=== PATIENT | male | born 1995 | race Two or more races ===

== ENCOUNTER 2017-05-02 17:17 | Emergency (ER) | payer OTHER ==
[~2017-05-02] VITALS: Ht 170.2 cm; Wt 113.4 kg
[2017-05-02 18:53] VITALS: BP 135/74
[2017-05-02] MEDS ORDERED: BACITRACIN TOP OINT 1 UD PKG TOP ONE (19:29)
[2017-05-02] MEDS ORDERED: HYDROcodone-ACET 10/325MG TAB PO ONE (19:30)
[2017-05-02] MEDS ORDERED: KETOROLAC TROMETH 60MG/2ML VIAL IM ONE (19:30)
== END 2017-05-02 19:51 | disposition home or self-care (01) ==
LOC: ER 17:26
DX: S67.192A Crushing injury of right middle finger, initial encounter (principal); S67.21XA Crushing injury of right hand, initial encounter; J45.909 Unspecified asthma, uncomplicated; I10 Essential (primary) hypertension; W23.0XXA Caught, crushed, jammed, or pinched between moving objects, initial encounter; Y93.89 Activity, other specified; Y99.8 Other external cause status; Y92.89 Other specified places as the place of occurrence of the external cause
CPT/HCPCS: 29130; 73140; 96372; 99284; J1885

== ENCOUNTER 2021-01-20 14:55 | Inpatient (IN) | payer MEDICAID, OTHER ==
[~2021-01-20] VITALS: Ht 170.2 cm; Wt 124.8 kg
[2021-01-20] MEDS ORDERED: ACETAMINOPHEN 325 MG TAB PO ONE (15:15)
[2021-01-20 16:10] LABS: Basophils # (auto) 0 10 ^3/uL (0-0.2); Basophils % (auto) 0.1 % (0.0-2.0); Eosinophils # (auto) 0 10 ^3/uL (0-0.8); Eosinophils % (auto) 0.1 % (0.0-7.0); Hematocrit 43.8 % (41.0-53.0); Hemoglobin 15.5 g/dL (13.5-17.5); Lymphocytes # (auto) 1.1 10 ^3/uL (0.4-5.4); Lymphocytes % (auto) 11.4 % (10.0-50.0); Mean Corpuscular Hgb Conc. 35.5 g/dL (32.0-36.0); Mean Corpuscular Volume 84.6 fL (80.0-100.0); Monocytes # (auto) 0.7 10 ^3/uL (0-1.3); Monocytes % (auto) 6.5 % (0.0-12.0); Neutrophils # (auto) 8.2 10 ^3/uL (1.6-8.6); Neutrophils % (auto) 81.9 % (37.0-80.0); Nucleated Red Blood Cells % 0.1 %; Red Blood Cells 5.18 10^6/uL (4.5-5.90); Red Cell Distribution Width 12.9 % (11.8-14.3)
[2021-01-20] MEDS ORDERED: DexAMETHasone SOD PHOS 10MG/1ML VIAL INJ IV ONE (16:15)
[2021-01-20] MEDS ORDERED: AZITHROMYCIN 500MG/ 250ML 250 ML IV ONE (16:15)
[2021-01-20] MEDS ORDERED: cefTRIAXone 1GM/50ML D5W 50 ML IV ONE (16:15)
[2021-01-20 16:29] LABS: Albumin 3.5 g/dL (3.4-5.0); BUN/Creatinine Ratio 9.9; Potassium 3.7 mmol/L (3.5-5.1)
[2021-01-20 16:31] LABS: Bilirubin, Total 0.7 mg/dL (0.2-1.0); Total Protein 8.5 g/dL (6.4-8.2)
[2021-01-20 16:32] LABS: INR 1.06 (0.9-1.15); Partial Thromboplastin Time 29.1 sec (23.0-31.2)
[2021-01-20] MEDS ORDERED: MORPHINE SULF INJ 2 MG/ML SYRINGE 1ML IV ONE (16:45)
[2021-01-20] MEDS ORDERED: NITROGLYCERIN 0.4 MG SL TAB SL PRN (16:45)
[2021-01-20] MEDS ORDERED: MORPHINE SULF INJ 2 MG/ML SYRINGE 1ML IV PRN (16:45)
[2021-01-20] MEDS ORDERED: ONDANSETRON HCL 4 MG/2 ML VIAL IV ONE (16:45)
[2021-01-20 17:58] VITALS: BP 125/76
[2021-01-20] MEDS ORDERED: REMDESIVIR PER PHARMACY 0 ML IV SCH (18:00)
[2021-01-20] MEDS ORDERED: REMDESIVIR 200 MG in NS 210ml LOADING DOSE ADULT IV ONE (21:00)
[2021-01-20 22:00] VITALS: BP 121/73
[2021-01-21] VITALS (8 sets, daily range): BP systolic 100–132; BP diastolic 55–73
[2021-01-21] MEDS ORDERED: LORazepam 0.5 MG TAB PO PRN (02:00)
[2021-01-21] MEDS ORDERED: MORPHINE SULF INJ 2 MG/ML SYRINGE 1ML IV PRN ×2 (02:00)
[2021-01-21] MEDS ORDERED: ALUM & MAG HYDROX-SIMETH LIQ(MAALOX) 30 ML PO PRN (02:00)
[2021-01-21] MEDS ORDERED: ONDANSETRON HCL 4 MG/2 ML VIAL IV PRN (02:00)
[2021-01-21] MEDS ORDERED: DOCUSATE SOD 100 MG CAP PO PRN (02:00)
[2021-01-21] MEDS ORDERED: ALBUTEROL SULF HFA 90MCG INH 200DOSE IN PRN (02:00)
[2021-01-21] MEDS ORDERED: NITROGLYCERIN 0.4 MG SL TAB SL PRN (02:00)
[2021-01-21] MEDS ORDERED: ACETAMINOPHEN 325 MG TAB PO PRN (02:00)
[2021-01-21] MEDS ORDERED: ACETAMINOPHEN 500 MG TAB PO PRN (02:00)
[2021-01-21] MEDS ORDERED: HYDROcodone-ACET 5/325MG TAB PO PRN (02:00)
[2021-01-21] MEDS ORDERED: DOXYCYCLINE 100MG/250ML 250 ML IV SCH (03:00)
[2021-01-21] MEDS ORDERED: IPRATROPIUM BROMIDE HFA AER IN SCH (06:00)
[2021-01-21] MEDS ORDERED: IPRATROPIUM BROMIDE HFA AER IN PRN (06:00)
[2021-01-21 06:06] LABS: Basophils # (auto) 0 10 ^3/uL (0-0.2); Basophils % (auto) 0.2 % (0.0-2.0); Eosinophils # (auto) 0 10 ^3/uL (0-0.8); Hematocrit 43.1 % (41.0-53.0); Hemoglobin 15.5 g/dL (13.5-17.5); Lymphocytes # (auto) 0.9 10 ^3/uL (0.4-5.4); Lymphocytes % (auto) 14.6 % (10.0-50.0); Mean Corpuscular Hemoglobin 30.7 pg (28.0-32.0); Mean Corpuscular Volume 85.3 fL (80.0-100.0); Monocytes # (auto) 0.5 10 ^3/uL (0-1.3); Monocytes % (auto) 8.2 % (0.0-12.0); Neutrophils # (auto) 4.5 10 ^3/uL (1.6-8.6); Nucleated Red Blood Cells % 0.1 %; Red Blood Cells 5.06 10^6/uL (4.5-5.90); Red Cell Distribution Width 12.8 % (11.8-14.3); White Blood Cell 5.8 10^3/uL (4.4-10.8)
[2021-01-21 06:23] LABS: Albumin 3.1 g/dL (3.4-5.0); Anion Gap 4 (5-15); Blood Urea Nitrogen 13 mg/dL (7-18); Calcium 8.6 mg/dL (8.5-10.1); Carbon Dioxide 29 mmol/L (21-32); Chloride 105 mmol/L (98-107); Glucose 126 mg/dL (74-106); Magnesium 2.6 mg/dL (1.6-2.6); Sodium 138 mmol/L (136-145)
[2021-01-21 06:29] LABS: Alanine Aminotransferase 32 U/L (16-61); Alkaline Phosphatase 60 U/L (45-117); Aspartate Aminotransferase 15 U/L (15-37); Bilirubin, Total 0.6 mg/dL (0.2-1.0); GFR African American 148 mL/min; GFR Non-African American 122 mL/min; Total Protein 8.1 g/dL (6.4-8.2)
[2021-01-21 06:31] LABS: INR 1.06 (0.9-1.15); Partial Thromboplastin Time 27.9 sec (23.0-31.2)
[2021-01-21 06:32] LABS: CRP High Sensitivity 11.6 mg/dL (< 0.3); Cholesterol 162 mg/dL (< 200); HDL Cholesterol 23 mg/dL (40-59); LDL Cholesterol 118 mg/dL (< 100); Triglycerides 141 mg/dL (< 150)
[2021-01-21 06:37] LABS: Thyroid Stimulating Hormone 0.37 uIU/mL (0.358-3.74)
[2021-01-21] MEDS ORDERED: IVERMECTIN 3 MG TAB PO ONE (07:00)
[2021-01-21] MEDS: CHOLECALCIFEROL (VITD3) 2,000 UNIT CAP/TAB PO SCH (09:48)
[2021-01-21] MEDS: DexAMETHasone SOD PHOS 10MG/1ML VIAL INJ IV SCH (09:48)
[2021-01-21] MEDS: FLORASTOR (S. BOULARDII) 250 MG CAP PO SCH ×2 (09:48→21:36)
[2021-01-21] MEDS: ZINC SULFATE 220mg CAP or TAB PO SCH (09:48)
[2021-01-21] MEDS: ASCORBIC ACID 1,000 MG TAB PO SCH (09:48)
[2021-01-21] MEDS: ENOXAPARIN SOD 40 MG/0.4 ML SYRINGE SC SCH ×2 (09:49→21:36)
[2021-01-21] MEDS: BUDESONIDE (INHALATION) 180 MCG IH IN SCH ×2 (10:32→21:36)
[2021-01-21] MEDS ORDERED: PROMETHAZINE W/CODEINE 5 ML ORAL SYRUP PO PRN (10:45)
[2021-01-21] MEDS: ALBUTEROL SULF HFA 90MCG INH 200DOSE IN SCH ×2 (14:00→21:37)
[2021-01-21] MEDS: REMDESIVIR 100mg 100 MG in SODIUM CHL 0.9% 230 ML IV SCH (16:10)
[2021-01-21] MEDS: DOXYCYCLINE 100MG/250ML 250 ML IV SCH (17:30)
[2021-01-22] MEDS: DOXYCYCLINE 100MG/250ML 250 ML IV SCH ×2 (04:31→18:02)
[2021-01-22 05:00] VITALS: BP 111/61
[2021-01-22 06:25] LABS: Potassium 3.7 mmol/L (3.5-5.1)
[2021-01-22 06:33] LABS: BUN/Creatinine Ratio 20.5; Bilirubin, Total 0.4 mg/dL (0.2-1.0); Calcium 8.8 mg/dL (8.5-10.1); Total Protein 7.3 g/dL (6.4-8.2)
[2021-01-22 08:30] VITALS: BP 99/56
[2021-01-22] MEDS: ASCORBIC ACID 1,000 MG TAB PO SCH (09:54)
[2021-01-22] MEDS: ZINC SULFATE 220mg CAP or TAB PO SCH (09:54)
[2021-01-22] MEDS: ENOXAPARIN SOD 40 MG/0.4 ML SYRINGE SC SCH ×2 (09:54→22:08)
[2021-01-22] MEDS: CHOLECALCIFEROL (VITD3) 2,000 UNIT CAP/TAB PO SCH (09:54)
[2021-01-22] MEDS: FLORASTOR (S. BOULARDII) 250 MG CAP PO SCH ×2 (09:54→22:08)
[2021-01-22] MEDS: DexAMETHasone SOD PHOS 10MG/1ML VIAL INJ IV SCH (09:56)
[2021-01-22 12:33] VITALS: BP 112/60
[2021-01-22] MEDS: REMDESIVIR 100mg 100 MG in SODIUM CHL 0.9% 230 ML IV SCH (14:56)
[2021-01-22 17:00] VITALS: BP 119/60
[2021-01-22 22:00] VITALS: BP 123/80
[2021-01-23 05:00] VITALS: BP 119/61
[2021-01-23 05:52] LABS: Albumin 2.8 g/dL (3.4-5.0); Calcium 8.1 mg/dL (8.5-10.1); Potassium 3.8 mmol/L (3.5-5.1)
[2021-01-23 05:57] LABS: BUN/Creatinine Ratio 20.5; Bilirubin, Total 0.4 mg/dL (0.2-1.0); Total Protein 7.1 g/dL (6.4-8.2)
[2021-01-23] MEDS: DOXYCYCLINE 100MG/250ML 250 ML IV SCH ×2 (05:57→17:32)
[2021-01-23] MEDS: BUDESONIDE (INHALATION) 180 MCG IH IN SCH ×3 (07:05→19:06)
[2021-01-23 08:51] VITALS: BP 125/68
[2021-01-23] MEDS: CHOLECALCIFEROL (VITD3) 2,000 UNIT CAP/TAB PO SCH (10:00)
[2021-01-23] MEDS: ASCORBIC ACID 1,000 MG TAB PO SCH (11:00)
[2021-01-23] MEDS: ZINC SULFATE 220mg CAP or TAB PO SCH (11:00)
[2021-01-23] MEDS: FLORASTOR (S. BOULARDII) 250 MG CAP PO SCH ×2 (11:00→22:22)
[2021-01-23] MEDS: ENOXAPARIN SOD 40 MG/0.4 ML SYRINGE SC SCH ×2 (11:00→22:22)
[2021-01-23] MEDS: DexAMETHasone SOD PHOS 10MG/1ML VIAL INJ IV SCH (11:00)
[2021-01-23 13:17] VITALS: BP 140/65
[2021-01-23] MEDS: REMDESIVIR 100mg 100 MG in SODIUM CHL 0.9% 230 ML IV SCH (15:00)
[2021-01-23 17:00] VITALS: BP 126/71
[2021-01-23] MEDS: ALBUTEROL SULF HFA 90MCG INH 200DOSE IN SCH ×2 (19:05→19:06)
[2021-01-23 19:24] VITALS: BP 126/71
[2021-01-23 22:00] VITALS: BP 120/54
[2021-01-24 05:00] VITALS: BP 128/59
[2021-01-24] MEDS: DOXYCYCLINE 100MG/250ML 250 ML IV SCH ×2 (05:12→17:30)
[2021-01-24] MEDS: BUDESONIDE (INHALATION) 180 MCG IH IN SCH (06:21)
[2021-01-24 06:22] LABS: Basophils # (auto) 0 10 ^3/uL (0-0.2); Basophils % (auto) 0.2 % (0.0-2.0); Eosinophils # (auto) 0.1 10 ^3/uL (0-0.8); Eosinophils % (auto) 0.7 % (0.0-7.0); Hematocrit 45.5 % (41.0-53.0); Hemoglobin 15.5 g/dL (13.5-17.5); Lymphocytes # (auto) 2.1 10 ^3/uL (0.4-5.4); Lymphocytes % (auto) 15.7 % (10.0-50.0); Mean Corpuscular Hemoglobin 29.2 pg (28.0-32.0); Mean Corpuscular Volume 85.8 fL (80.0-100.0); Monocytes % (auto) 7.4 % (0.0-12.0); Nucleated Red Blood Cells % 0.1 %; Red Cell Distribution Width 13.3 % (11.8-14.3); White Blood Cell 13.2 10^3/uL (4.4-10.8)
[2021-01-24] MEDS: ALBUTEROL SULF HFA 90MCG INH 200DOSE IN SCH ×2 (06:22→11:47)
[2021-01-24 06:32] LABS: Potassium 3.9 mmol/L (3.5-5.1)
[2021-01-24 06:38] LABS: Bilirubin, Total 0.5 mg/dL (0.2-1.0); CRP High Sensitivity 0.78 mg/dL (< 0.3); Calcium 8.3 mg/dL (8.5-10.1); Total Protein 6.9 g/dL (6.4-8.2)
[2021-01-24 08:39] VITALS: BP 113/49
[2021-01-24] MEDS: CHOLECALCIFEROL (VITD3) 2,000 UNIT CAP/TAB PO SCH (09:45)
[2021-01-24] MEDS: ASCORBIC ACID 1,000 MG TAB PO SCH (09:45)
[2021-01-24] MEDS: DexAMETHasone SOD PHOS 10MG/1ML VIAL INJ IV SCH (09:45)
[2021-01-24] MEDS: ENOXAPARIN SOD 40 MG/0.4 ML SYRINGE SC SCH (09:45)
[2021-01-24] MEDS: FLORASTOR (S. BOULARDII) 250 MG CAP PO SCH (09:45)
[2021-01-24] MEDS: ZINC SULFATE 220mg CAP or TAB PO SCH (09:45)
[2021-01-24] MEDS ORDERED: ZINC220C8 PO (10:46)
[2021-01-24] MEDS ORDERED: ASCO10003 PO (10:46)
[2021-01-24] MEDS ORDERED: CHOL1CAP47 PO (10:46)
[2021-01-24] MEDS ORDERED: DOXY-332 PO (10:46)
[2021-01-24] MEDS ORDERED: DEXA6TAB6 PO (10:46)
[2021-01-24] MEDS ORDERED: ALBUAER3 IN (10:46)
[2021-01-24 11:11] VITALS: BP 113/49
[2021-01-24 13:00] VITALS: BP 115/70
[2021-01-24] MEDS: REMDESIVIR 100mg 100 MG in SODIUM CHL 0.9% 230 ML IV SCH (15:30)
== END 2021-01-24 18:10 | disposition home or self-care (01) | DRG 137 ==
LOC: ER 14:55 → TELE-EAST 16:40
PROVIDERS: ADMIT Hospitalist; ATTEND Hospitalist
PROC: XW033E5 Introduction of Remdesivir Anti-infective into Peripheral Vein, Percutaneous Approach, New Technology Group 5 (ICD-10-PCS; principal; 2021-01-20)
DX: U07.1 COVID-19 (principal); J96.01 Acute respiratory failure with hypoxia; J12.82 Pneumonia due to coronavirus disease 2019; J06.9 Acute upper respiratory infection, unspecified; E66.01 Morbid (severe) obesity due to excess calories; J98.11 Atelectasis; T38.0X5A Adverse effect of glucocorticoids and synthetic analogues, initial encounter; I49.8 Other specified cardiac arrhythmias; Z68.41 Body mass index [BMI] 40.0-44.9, adult; Y92.89 Other specified places as the place of occurrence of the external cause; Z90.49 Acquired absence of other specified parts of digestive tract; Z79.899 Other long term (current) drug therapy; D72.829 Elevated white blood cell count, unspecified
CPT/HCPCS: 36415; 36600; 71045; 80053; 80061; 82306; 82728; 82805; 83036; 83605; 83615; 83735; 84443; 84484; 85025; 85049; 85379; 85610; 85730; 86141; 87040; 87426; 94640; 96365; 96366; 96368; 96375; 99291; G0378; J0696; J1100; J2405; J3490